=== PATIENT | female | born 1980 | race African-American/Black ===

== ENCOUNTER 2016-08-17 09:46 | Emergency (ER) | payer OTHER ==
[~2016-08-17] VITALS: Ht 160 cm; Wt 49.9 kg
[~2016-08-17 09:46] MED LIST: Albuterol ud Inhalation HHN ONE
[2016-08-17] MEDS ORDERED: VENTOLIN HFA18 GM INH (10:12)
[2016-08-17] MEDS ORDERED: ACETAMINOPHEN-1 EAC1 ORAL (10:12)
[2016-08-17] MEDS ORDERED: ZITHROMAX250 MG ORAL (10:12)
[2016-08-17] MEDS ORDERED: Tylenol #3 tab (300mg/30mg) ORAL ONE (10:15)
--- NOTE | 2016-08-17 10:29 | Emergency Room Report ---
History of Present Illness General Chief Complaint: Fever Source: Patient Present Illness HPI 35YOF BIBEMS with 1 month fever/chills, cough, weakness. Denies asthma. + smoker. Denies other PMHx. Didnt seek out med attention previously. Feels well otherwise. Denies sore throat, sinus congestion, headache, neck pain/ stiffness, earache. Allergies: Coded Allergies: No Known Allergies (Unverified , 08/17/16) Patient History Past Medical History: none Past Surgical History: none Pertinent Family History: none Social History: Reports: smoking Now: No Immunizations: UTD Reviewed Nursing Documentation: PMH: Agreed, PSxH: Agreed Nursing Documentation-PMH Past Medical History: No Stated History Review of Systems All Other Systems: negative except mentioned in HPI Physical Exam Vital Signs Date Time Temp Pulse Resp B/P Pulse Ox O2 Delivery O2 Flow Rate FiO2 08/17/16 09:42 102.0 102 16 102/70 98 Room Air 08/17/16 09:54 21 Sp02 EP Interpretation: reviewed, abnormal General Appearance: normal inspection, no apparent distress, alert, GCS 15, non -toxic, mild distress, other - Weak Head: normocephalic, atraumatic Eyes: bilateral eye EOMI, bilateral eye PERRL ENT: normal ENT inspection, hearing grossly normal, normal voice Neck: normal inspection, full range of motion, supple, no bony tend Respiratory: normal inspection, lungs clear, normal breath sounds, no respiratory distress, no retraction, no accessory muscle use, no wheezing, crackles, speaking full sentences Cardiovascular #1: regular rate, rhythm, no edema Gastrointestinal: normal inspection, normal bowel sounds, non tender, soft, no guarding, no hernia Genitourinary: no CVA tenderness Musculoskeletal: normal inspection, back normal, normal range of motion, Aaron' s Sign negative Neurologic: normal inspection, alert, oriented x3, responsive, union organizer III-XII nml as tested, motor strength/tone normal Psychiatric: normal inspection, judgement/insight normal, mood/affect normal Skin: normal inspection, normal color, no rash Lymphatic: normal inspection Medical Decision Making Diagnostic Impression: Primary Impression: Fever Qualified Codes: R50.9 - Fever, unspecified Additional Impression: Pneumonia Qualified Codes: J18.1 - Lobar pneumonia, unspecified organism ER Course 35YOF with 1 month fever, cough, weakness. VS significant for fever, tachcyardia SIRS criteria met CXR with right upper lobe PNA ALbuterol, T#3 given in ED [place] tx as outpatient for community acquired PNA with Azithromycin Low suspicion for need for hospitalization for acute PNA given well appearance, young age, no comordbidity Chest X-Ray Diagnostic Results EP Interpretation: Yes Findings: no pneumothorax, no acute cardiopulmonary disease, other - Right upper lobe infiltrate Number of Views: 1 Last Vital Signs Date Time Temp Pulse Resp B/P Pulse Ox O2 Delivery O2 Flow Rate FiO2 08/17/16 09:54 21 08/17/16 09:54 102 16 Room Air 08/17/16 09:54 98 08/17/16 09:42 102.0 102/70 Status: improved Disposition: HOME, SELF-CARE Condition: Improved Scripts Albuterol Sulfate (VENTOLIN HFA) 18 Gm Hfa.aer.ad 1 PUFF INH EVERY 6 HOURS for For Cough, #18 GM 0 Refills Prov: CHINA REYES M.D. 08/17/16 Acetaminophen With Codeine (T#3) (TYLENOL #3 TAB*) Y Tab 1 TAB ORAL Q8H Y for For Cough, #20 TAB Prov: CHINA REYES M.D. 08/17/16 Azithromycin* (ZITHROMAX*) 250 Mg Tablet 250 MG ORAL DAILY, #6 TAB 0 Refills Take two tables once daily for 1 day, then one tablet once daily for 4 days. Prov: CHINA REYES M.D. 08/17/16 Patient Instructions: Upper Respiratory Infection, Adult, [id number] Additional Instructions: - Take ALL of the antibiotics - Zithromax - until finished - Cough: Use ventolin inhlaer during the day and T#3 at night for cough - Follow up with your primary care doctor in 2-3 days for repeat check-up CHINA REYES M.D. Aug 17, 2016 10:29
[2016-08-17 10:48] VITALS: BP 127/64
--- NOTE | 2016-08-18 08:29 | Diagnostic Imaging Report ---
Indication: Dyspnea Comparison: None A single view chest radiograph was obtained. Findings: There is moderate infiltrate in the right upper lobe adjacent to the mediastinum. Findings consistent with pneumonia. Heart is normal in size. Bones are unremarkable. There is a probable small right pleural effusion. Impression: Right upper lobe pneumonia
== END 2016-08-17 10:48 | disposition home or self-care (01) ==
LOC: EDBD 09:46 → EMR 10:05
DX: R50.9 Fever, unspecified (principal); J18.1 Lobar pneumonia, unspecified organism; R53.1 Weakness; F17.200 Nicotine dependence, unspecified, uncomplicated; R00.0 Tachycardia, unspecified
CPT/HCPCS: 71010; 94640; 94664; 99284